=== PATIENT | male | born 1995 | race Caucasian/White ===

== ENCOUNTER 2023-05-16 11:06 | Day surgery (SDC) | payer OTHER ==
[~2023-05-16] VITALS: Ht 160 cm; Wt 60.9 kg
[~2023-05-16 11:06] MED LIST: AMOX50SU PO; BUSP5; CLINGEL TOP; CODACEE120 PO; FLUO10 PO; HYDPAM25 PO; LAMO25 PO; LAVAP17G PO; LORA1 PO; MINERAL OIL; OLAN5; PERIDEX15 ML; Prozac20 MG; [UNRECOGNIZED DRUG - OTHER]
[2023-05-16] MEDS ORDERED: MELATONIN5 M1 PO (11:54)
--- NOTE | 2023-05-16 12:42 | NUR ---
05/16/23 Jen Roberts PT WAS MASKED WITH SEVO AND IV WAS STARTED WHILE PT WAS SLEEPING
--- NOTE | 2023-05-16 13:13 | NUR ---
05/16/23 1313 Venessa Good PATIENT PLACED ON 10L O2 VIA FT UPON ARRIVAL TO PACU FOR SPO2 92-93% ON RA. PATIENT BEGAN WITH OBSTRUCTIVE BREATH SOUNDS. SP02 DROPPED INTO MID 80S, JAW THRUSTS PERFORMED AND SPO2 INCREASED UP TO 93-94% FOR SHORT PERIOD OF TIME THEN BEGAN DROPPING QUICKLY INTO HIGH 60S. DR AGUILAR AT BEDSIDE FOR EVENTS. O2 INCREASED TO 15L VIA FT AND JAW THRUSTS PERFORMED. DR AGUILAR ATTEMPTED TO PLACE NASAL TRUMPET BUT PATIENT THEN BEGAN TO HAVE REGULAR BREATHING PATTERN AND SPO2 INCREASED TO 98% ON OWN. DID NOT CONTINUE WITH PLACING NASAL TRUMPET. ORAL AIRWAY STILL IN PLACE. PT SLEEPING. SPO2 MAINTAINING AT 98-100% ON 10L VIA FT WITHOUT JAW THRUSTS. WILL CONTINUE TO MONITOR PATIENT.
[2023-05-16 14:27] VITALS: BP 137/92
--- NOTE | 2023-05-16 14:48 | NUR ---
05/16/23 1448 Venessa Good CAREGIVERS BROUGHT INTO STEPDOWN AND AT BEDSIDE. PATIENT OPENING EYES. ABLE TO SQUEEZE MY HAND UPON DIRECTION. MOVING ALL EXTREMITIES. IV DC'D. PATIENT TOLERATED WELL. LIFTING HEAD UP AND LOOKING AROUND THE ROOM.
== END 2023-05-16 15:42 | disposition home or self-care (01) ==
LOC: ORSCSDS 11:06 → ORD 14:00 → ORSCSDS 15:42
PROVIDERS: Otolaryngology
PROC: 09C47ZZ Extirpation of Matter from Left External Auditory Canal, Via Natural or Artificial Opening (ICD-10-PCS; principal; 2023-05-16 12:30)
PROC: 09C37ZZ Extirpation of Matter from Right External Auditory Canal, Via Natural or Artificial Opening (ICD-10-PCS; principal; 2023-05-16 12:30)
DX: H61.23 Impacted cerumen, bilateral (principal); F84.0 Autistic disorder; Q90.9 Down syndrome, unspecified; R62.50 Unspecified lack of expected normal physiological development in childhood
CPT/HCPCS: A9270; J7120

== ENCOUNTER → 2025-04-01 | Outpatient (CLI) | payer OTHER ==
[~2025-04-01] MED LIST changes: +MELATONIN5 M1 PO
[2025-04-01 18:03] LABS: Bilirubin, Urine Neg (Neg); Color, Urine Yellow (P-Yellow); Glucose Qualitative, Urine Neg (Neg); Ketones, Urine Neg (Neg); Leukocyte Esterase, Urine Neg (Neg); Protein, Urine Neg (Neg); Specific Gravity, Urine 1.010 (1.003-1.022); Urobilinogen, Urine NORM (Normal)
[2025-04-01 18:24] LABS: Red Blood Cells, Urine Not Seen /hpf (0-2); White Blood Cells, Urine Not Seen /hpf (0-5)
== END ==
LOC: LAB 10:30 → LAB SHORT 10:30 → LAB FUT 04-01 13:05
PROVIDERS: Family Medicine
DX: N39.0 Urinary tract infection, site not specified (principal)
CPT/HCPCS: 81001